=== PATIENT | male | born 1950 | race Caucasian/White ===

== ENCOUNTER 2019-03-12 04:18 | Inpatient (IN) ==
[2019-03-12] MEDS ORDERED: LEVOPHED 8 MG in D5 1/2 NS 250 ML IV SCH (04:30)
--- NOTE | 2019-03-12 04:44 | PROVIDER DOCUMENTATION ---
HPI-Cardiopulmonary Arrest - General Chief Complaint: Full Arrest Stated Complaint: Post Arrest Time Seen by Provider: 03/12/19 04:35 Allergies/Adverse Reactions: Allergies Allergy/AdvReac Type Severity Reaction Status Date / Time codeine Allergy Severe HIVES Verified 03/12/19 04:57 Home Medications: Home Medication List Medication Instructions Recorded Confirmed Last Taken Type ATORVAstatin [Lipitor] 40 mg PO QHS 08/14/13 03/12/19 12/19/17 21:00 History Aspirin 81 mg PO DAILY 08/14/13 03/12/19 12/19/17 09:00 History Clopidogrel [Plavix] 75 mg PO DAILY 08/14/13 03/12/19 12/13/17 History Insulin Glargine [Lantus] 75 unit SUBQ QHS 08/14/13 03/12/19 12/19/17 21:00 History 55 Isosorbide Mononitrate E.r. [Imdur] 60 mg PO DAILY 08/14/13 03/12/19 12/19/17 09:00 History Metoprolol [Lopressor] 100 mg PO BID 08/14/13 03/12/19 12/19/17 21:00 History Montelukast Sodium [Singulair] 10 mg PO DAILY 08/08/16 03/12/19 12/19/17 09:00 History Furosemide [Lasix] 40 mg PO DAILY 06/06/17 03/12/19 12/13/17 History LISINOpril [Prinivil] 10 mg PO DAILY 06/06/17 03/12/19 12/19/17 09:00 History Metoclopramide [Reglan] 10 mg PO AC + HS 06/06/17 03/12/19 12/19/17 21:00 History Sitagliptin Phosphate [Januvia] 100 mg PO DAILY 06/06/17 03/12/19 12/19/17 09:00 History Ascorbic Acid [Vitamin C] 1,000 mg PO BID 06/09/17 03/12/19 12/19/17 21:00 History Albuterol Sulfate [Albuterol 8.5 gm IH PRN PRN 12/13/17 03/12/19 12/19/17 22:00 History Sulfate Hfa] Potassium Chloride 40 meq PO DAILY 12/13/17 03/12/19 12/19/17 09:00 History - History of Present Illness-C/P Arrest Initial Comments: Presents to the EC with EMS s/p ROSC. Per EMS, stated that she got up to check up in him in his recliner and he was hooked up to his CPAP machine. She states he was having trouble breathing and then fell over on the floor. She could not get any response or pulses from him and called 911. Per EMS, upon arrival he was in asystole. They gave him 2 epi and a dose of lidocaine. He went into Vfib and they shocked at 200J. He then regained ROSC but remained bradycardic. He was given 2 doses of atropine and started on dopamine. Upon speaking to the , she states that he sleeps in his recliner at night because he cannot lay flat. She states that she heard an abnormality with his CPAP machine and got up to check on him and that is when he collapsed on the floor. She states she called 911 at that time. Review of Systems - Adult - REVIEW OF SYSTEMS - ADULT ROS:: unobtainable per condition Constitutional: reports: see HPI Eyes: reports: see HPI Ears, Nose, Mouth & Throat: reports: see HPI Cardiovascular: reports: see HPI Respiratory: reports: see HPI Gastrointestinal: reports: see HPI Genitourinary: reports: see HPI Musculoskeletal: reports: see HPI Integumentary: reports: see HPI Neurological: reports: see HPI Psychiatric: reports: see HPI Endocrine: reports: see HPI Hematologic/Lymphatic: reports: see HPI Allergic/Immunologic: reports: see HPI All Other Systems: Reviewed and Negative Past History - Adult - PAST MEDICAL HISTORY-ADULT Review of Records: reports: Old Records Reviewed Cardiovascular: reports: CAD, CHF, HTN Physical Exam-General - PHYSICAL EXAM-ADULT Initial Vital Signs Reviewed: Yes - CONSTITUTIONAL General Appearance: other (intubated) - EYES Eyes: other (minimally reactive) - HEAD, EARS, NOSE, MOUTH & THROAT HENMT: normocephalic/atraumatic, other (intubated) - NECK Neck: normal inspection - RESPIRATORY Respiratory: lungs clear, other (intubated, BVM in use) - CARDIOVASCULAR Cardiovascular: no edema, bradycardia - GASTROINTESTINAL (ABDOMEN) Abdominal Exam: soft. negative: distended - MUSCULOSKELETAL Extremity: normal inspection, no pedal edema - SKIN Integumentary: warm/dry, pallor - NEUROLOGIC Neurologic: other (intubated) - PSYCHIATRIC Psych/Mental Status: other (intubated) Progress - PLAN OF CARE/RESULTS Progress/Plan/Lab Results: Vital Signs - 8 hr 03/12/19 04:28 03/12/19 04:58 03/12/19 05:30 Temperature 95.2 F L Pulse Rate 70 120 H Respiratory Rate 20 20 Blood Pressure 68/32 O2 Sat by Pulse Oximetry 90 L 98 Laboratory Results - last 24 hr 03/12/19 03/12/19 03/12/19 04:30 04:30 04:30 WBC 8.38 RBC 3.25 L Hgb 10.1 L Hct 31.6 L MCV 97.2 MCH 31.1 H MCHC 32.0 L RDW Std Deviation 12.9 Plt Count 162 MPV 10.7 H Immature Gran % (Auto) 2.0 H Neut % (Auto) 73.8 Lymph % (Auto) 17.4 L [place] % (Auto) 4.9 Eos % (Auto) 1.7 Baso % (Auto) 0.2 Immature Gran # (Auto) 0.17 H Neut # (Auto) 6.18 Lymph # (Auto) 1.46 [place] # (Auto) 0.41 Eos # (Auto) 0.14 Baso # (Auto) 0.02 PT INR PTT (Actin FS) Specimen Type Sample Site pH pCO2 pO2 HCO3 Base Excess Oxyhemoglobin ABG O2 Sat (Calculated) ABG O2 Saturation ABG Carboxyhemoglobin ABG Methemoglobin Amado Test A-a O2 Difference Total Hemoglobin Lactate Liter Flow Blood Gas Modality FiO2 % Sodium 139 Potassium 6.4 H* Chloride 111 H Carbon Dioxide 14 L Anion Gap 14 BUN 30 H Creatinine 1.8 H Estimated GFR/1.73 m2 38 BUN/Creatinine Ratio 17 Glucose 261 H Calculated Osmolality 293 Calcium 7.9 L Phosphorus Magnesium Total Bilirubin 0.37 AST 40 H ALT 31 Alkaline Phosphatase 105 Creatine Kinase 180 Troponin T Cst-H-Djcmpwxcxut Pept 2154 H Total Protein 5.5 L Albumin 3.5 Globulin 2.0 Albumin/Globulin Ratio 1.8 Urine Source Urine Color Urine Turbidity Urine pH Ur Specific [place] Urine Protein Ur Glucose (Stick) Ur Ketones (Stick) Urine Blood Urine Nitrite Urine Bilirubin Urobilinogen Dipstick Urine Leukocytes Urine WBC (Auto) Urine RBC (Auto) U Epithel Cells (Auto) Urine Bacteria (Auto) 03/12/19 03/12/19 03/12/19 04:30 04:30 04:30 WBC RBC Hgb Hct MCV MCH MCHC RDW Std Deviation Plt Count MPV Immature Gran % (Auto) Neut % (Auto) Lymph % (Auto) [place] % (Auto) Eos % (Auto) Baso % (Auto) Immature Gran # (Auto) Neut # (Auto) Lymph # (Auto) [place] # (Auto) Eos # (Auto) Baso # (Auto) PT 15.1 INR 1.10 PTT (Actin FS) 39.5 Specimen Type Sample Site pH pCO2 pO2 HCO3 Base Excess Oxyhemoglobin ABG O2 Sat (Calculated) ABG O2 Saturation ABG Carboxyhemoglobin ABG Methemoglobin Amado Test A-a O2 Difference Total Hemoglobin Lactate Liter Flow Blood Gas Modality FiO2 % Sodium Potassium Chloride Carbon Dioxide Anion Gap BUN Creatinine Estimated GFR/1.73 m2 BUN/Creatinine Ratio Glucose Calculated Osmolality Calcium Phosphorus 7.2 H Magnesium 1.9 Total Bilirubin AST ALT Alkaline Phosphatase Creatine Kinase Troponin T 0.049 Caf-G-Aoztprlaqkg Pept Total Protein Albumin Globulin Albumin/Globulin Ratio Urine Source Urine Color Urine Turbidity Urine pH Ur Specific [place] Urine Protein Ur Glucose (Stick) Ur Ketones (Stick) Urine Blood Urine Nitrite Urine Bilirubin Urobilinogen Dipstick Urine Leukocytes Urine WBC (Auto) Urine RBC (Auto) U Epithel Cells (Auto) Urine Bacteria (Auto) 03/12/19 03/12/19 04:30 05:00 WBC RBC Hgb Hct MCV MCH MCHC RDW Std Deviation Plt Count MPV Immature Gran % (Auto) Neut % (Auto) Lymph % (Auto) [place] % (Auto) Eos % (Auto) Baso % (Auto) Immature Gran # (Auto) Neut # (Auto) Lymph # (Auto) [place] # (Auto) Eos # (Auto) Baso # (Auto) PT INR PTT (Actin FS) Specimen Type ARTERIAL Sample Site L RADIAL pH 7.00 L* pCO2 57 H* pO2 104 H HCO3 11.5 L Base Excess -17.1 L Oxyhemoglobin 93.6 L ABG O2 Sat (Calculated) 15.5 ABG O2 Saturation 97.1 ABG Carboxyhemoglobin 2.50 ABG Methemoglobin 1.1 Amado Test YES A-a O2 Difference 538.0 Total Hemoglobin 11.7 Lactate 2.50 H Liter Flow 15.0 Blood Gas Modality AMBU BAG FiO2 % 100.0 Sodium Potassium Chloride Carbon Dioxide Anion Gap BUN Creatinine Estimated GFR/1.73 m2 BUN/Creatinine Ratio Glucose Calculated Osmolality Calcium Phosphorus Magnesium Total Bilirubin AST ALT Alkaline Phosphatase Creatine Kinase Troponin T Ljw-U-Zsuosjcbzkh Pept Total Protein Albumin Globulin Albumin/Globulin Ratio Urine Source CATH Urine Color YELLOW Urine Turbidity HAZY Urine pH 5.5 Ur Specific [place] 1.018 Urine Protein 300 A Ur Glucose (Stick) NEGATIVE Ur Ketones (Stick) NEGATIVE Urine Blood NEGATIVE Urine Nitrite NEGATIVE Urine Bilirubin NEGATIVE Urobilinogen Dipstick NORMAL Urine Leukocytes NEGATIVE Urine WBC (Auto) <10 Urine RBC (Auto) <10 U Epithel Cells (Auto) <10 Urine Bacteria (Auto) NEGATIVE Orders Category Date Time Status Cardiac Monitoring DIRECTED Care 03/12/19 04:55 Active Nursing- Obtain EKG ONCE Care 03/12/19 05:20 Active Oxygen Therapy- ED Nursing DIRECTED Care 03/12/19 04:55 Active Saline Loc NOW Care 03/12/19 04:55 Active CHEST-PORTABLE [RAD] Stat Exams 03/12/19 04:39 Taken ABG [RESP] Routine Lab 03/12/19 05:00 Completed CBC WITH ELECTRONIC DIFF [HEME] Stat Lab 03/12/19 04:30 Completed CK PROFILE [SP CHEM] Stat Lab 03/12/19 04:30 Completed COMPREHENSIVE METABOLIC PANEL [CHEM] Stat Lab 03/12/19 04:30 Completed MAGNESIUM [CHEM] Stat Lab 03/12/19 04:30 Completed PHOSPHORUS [CHEM] Stat Lab 03/12/19 04:30 Completed PRO B-NATRIURETIC PEPTIDE Stat Lab 03/12/19 04:30 Completed PROTIME WITH INR [COAG] Stat Lab 03/12/19 04:30 Completed PTT [COAG] Stat Lab 03/12/19 04:30 Completed TROPONIN T Stat Lab 03/12/19 04:30 Completed URINALYSIS W/POSS RFLX CULT [URINALYSIS] Stat Lab 03/12/19 04:30 Completed URINE CULTURE [RM] Routine Lab 03/12/19 05:46 Received 0.9% Sodium Chloride Inj [Ns] 1,000 ml Med 03/12/19 04:52 Discontinued .ROUTE As directed Aspirin Med 03/12/19 04:54 Discontinued 300 mg NV NOW ONE Dextrose 5%-0.45% NaCl Inj [D5 1/2 Ns] 250 ml Med 03/12/19 04:30 Active Norepinephrine [Levophed] 8 mg IV As Directed mls/hr Dopamine 800 mg/D5w Med 03/12/19 05:30 Active 800 mg in 500 ml IV As Directed mls/hr CP/SOB/Palp >45 yrs of Age Stat Oth 03/12/19 04:54 Ordered EKG [EKG] Stat Ther 03/12/19 05:20 Draft [facility] to [facility] who declined transfer to their service stating it was more respiratory in nature. They offered to be consulted if hospitalist would accept and transfer center advised us that hospitalist were at capacity and no longer accepting patients. Paged Dr Potts, detention attendant for cardiology at [facility]. He states that we could attempt to transfer to [facility] or we could keep the patient here and see if he has any mental status changes given the cardiac arrest. I spoke to the about the possibility of transfer and she is concerned about his stability and would like him just kept at this hospital. She understands that there is no interventional cardiology here should he need it. Code status was discussed and she thinks he would not want anything done but is not willing to make that final decision yet and would some time to think about it. He remains full code at this time. Hypothermic protocol initiated. Paged Hospitalist at 0545: Per workers compensation legal secretary, Dr Sanchez left at 0530 and we will need to await until 0700 hospitalist comes on. Paged hospitalist @0702: Spoke to Dr Tomas who accepted patient for admission. Further orders to be placed at this time. Result Diagrams: 03/12/19 04:30 03/12/19 04:30 - EKG 1 Time of EKG reading by physician:: 04:25 EKG Read and Signed by:: Sheila Lopez EKG Interpretation (*Must complete 3 of following elements*): Abnormal Rate: 68 Rhythm: NSR NV Interval: prolonged Comments: RBBB, bifasicular block, possible inferolateral ischemia 2 Time of EKG reading by physician:: 04:48 EKG Read and Signed by:: Sheila Lopez EKG Interpretation (*Must complete 3 of following elements*): Abnormal Rate: 117 Rhythm: Tachycardia QRS: PVC's Comments: RBBB, bifasicular block, possible inferolateral ischemia - XRAY 1 XRAY Study: Chest (good tube placement, NGT could benefit from slight advancement) Impression: See EMR Report - CONSULTS/PCP/HOSPITALIST Notification #1 *Consult/PCP/Hospitalist*: [facility] Transfer center Time Discussed: 05:00 (Cardiology wants EKG faxed) #2 Consult: [facility] Time Discussed: 05:20 (Cardiology wants another EKG) #3 Consult: Transfer Center Time Discussed: 05:30 (Declines patient, does not feel this is cardiac and is likely more respiratory. They will defer to their hospitalist service and will be consulted if needed. Hospitalist service capped, not accepting transfer at this time. ) Departure - Departure Date of Disposition Decision: 03/12/19 Time of Disposition Decision: 05:40 DIAGNOSIS: Cardiac arrest, Chronic kidney disease, Diabetes mellitus, Coronary artery disease, Hyperkalemia, Respiratory acidosis Disposition: ADMITTED INPATIENT 09 Certified Medical Emergency: Emergent Condition: Critical Referrals and Follow-Ups: Debra Rendon CRNP [Primary Care Provider] - - Critical Care Note This patient required my direct & personal management of CC.: Yes Total Time (mins): 90 Critical Care Statement: This patient required my direct personal management to treat or rule out processes, the absence of which, could potentiallly result in sudden, clinically significant life or limb threatening deterioration. Attestation - Physician/ [place] Attestation Patient care was provided by Advanced Practice Provider:: No The physician spent face to face time with patient:: Yes Advanced Practice Provider documentation review:: Supervising physician onsite and consulted in the evaluation and care of this patient. The physician did have a face to face encounter with the patient.
[2019-03-12] MEDS ORDERED: NS 1,000 ML ONE (04:52)
[2019-03-12] MEDS ORDERED: ASPIRIN PR ONE (04:54)
[2019-03-12 05:09] LABS: ALLEN TEST YES; BE -17.1 mmoll (-3.0-3.0); BLOOD TYPE ARTERIAL; HCO3-(ACT) 11.5 mmoll (20.0-26.0); METHB 1.1 % (0.0-1.5); O2(CT) 15.5 mL/dL (15.0-23.0); O2HB 93.6 % (95.0-99.0); PO2(98.6) 104 mmHg (60-100); SAMPLE BLOOD; SAO2 97.1 % (95.0-100.0); THB 11.7 g/dL (11.5-17.4)
[2019-03-12 05:11] LABS: BASO# 0.02 X1000 (0.0-0.2); BASO% 0.2 % (0.0-0.8); EOS# 0.14 X1000 (0.0-0.7); EOS% 1.7 % (0.0-10.0); HEMATOCRIT 31.6 % (42.0-52.0); HEMOGLOBIN 10.1 g/dL (14.0-18.0); IMM GRAN# 0.17 X1000 (0.0-0.04); LYMPH# 1.46 X1000 (1.2-3.4); LYMPH% 17.4 % (20.5-51.1); MCH 31.1 PG (27-31); MCV 97.2 FL (81-99); MONO# 0.41 X1000 (0.11-0.59); MONO% 4.9 % (1.7-9.3); MPV 10.7 FL (7.4-10.4); NEUT# 6.18 X1000 (1.4-6.5); NEUT% 73.8 % (42.2-75.2); PLT 162 X1000 (130-400); RBC 3.25 XMIL (4.7-6.1); RDW 12.9 % (11.5-14.5); WBC 8.38 X1000 (4.8-10.8)
[2019-03-12 05:12] LABS: MODALITY AMBU BAG; PCO2(98.6) 57 mmHg (35-45)
[2019-03-12 05:20] LABS: INR 1.1; PROTIME 15.1 Seconds (11.0-16.0)
[2019-03-12 05:21] LABS: PTT 39.5 Seconds (22.3-41.8)
[2019-03-12] MEDS ORDERED: DOPAMINE 800 MG/D5W 800 MG/500 ML IV.SOLN IV SCH (05:30)
--- NOTE | 2019-03-12 05:38 | EKG Report ---
Test Performed on : 03/12/2019 04:48:26 AM Test Reason : Post Arrest Blood Pressure : / mmHG Vent. Rate : 117 BPM Atrial Rate : 117 BPM P-R Int : 158 ms QRS Dur : 176 ms QT Int : 412 ms P-R-T Axes : 062 121 -31 degrees QTc Int : 574 ms Sinus tachycardia. with occasional premature ventricular complexes. Possible Left atrial enlargement Right bundle branch block Left posterior fascicular block Bifascicular block Marked T wave abnormality, consider inferior ischemia Abnormal ECG When compared with ECG of 13-DEC-2017 13:39, premature ventricular complexes. are now present Vent. rate has increased BY 61 BPM (RBBB and left posterior fascicular block) is now present Criteria for Septal infarct are no longer present Unconfirmed Result
[2019-03-12 05:53] LABS: URINE SOURCE CATH
[2019-03-12 06:00] LABS: BILIRUBIN URINE NEGATIVE (NEGATIVE); BLOOD URINE NEGATIVE (NEGATIVE); COLOR YELLOW; GLUCOSE URINE NEGATIVE (NEGATIVE); KETONE URINE NEGATIVE (NEGATIVE); LEUKOCYTES URINE NEGATIVE (NEGATIVE); NITRITE URINE NEGATIVE (NEGATIVE); PH URINE 5.5; PROTEIN URINE 300 mg/dL (NEGATIVE); SP GRAVITY URINE 1.018; TURBIDITY URINE HAZY (CLEAR); UROBILINOGEN URINE NORMAL (NORMAL)
[2019-03-12 06:02] LABS: UR EPITHELIAL CELLS <10 /HPF (<10); URINE BACTERIA NEGATIVE /HPF; URINE RBC <10 /HPF (<10); URINE WBC <10 /HPF (<10)
[2019-03-12 06:07] LABS: MAGNESIUM 1.9 mg/dL (1.5-2.7); PHOSPHORUS 7.2 mg/dL (2.7-4.5)
[2019-03-12 06:16] LABS: ALB/GLOB RATIO 1.8; ALBUMIN 3.5 g/dL (3.5-5.0); CALCIUM 7.9 mg/dL (8.8-10.2); CREATININE 1.8 mg/dL (0.7-1.2); TOTAL BILIRUBIN 0.37 mg/dL (0.20-1.00); TOTAL PROTEIN 5.5 g/dL (6.3-8.3)
[2019-03-12 06:19] LABS: POTASSIUM 6.4 mmol/L (3.5-5.1)
[2019-03-12] MEDS ORDERED: KAYEXALATE NG ONE (07:18)
[2019-03-12] MEDS ORDERED: NS 1,000 ML IV ONE (07:20)
[2019-03-12] MEDS ORDERED: SODIUM BICARBONATE 8.4% 150 MEQ in D5W 1,000 ML IV ONE (07:30)
[2019-03-12] MEDS ORDERED: ZYVOX 600 MG/D5W 600 MG/300 ML IVPB IV SCH (07:30)
[2019-03-12] MEDS ORDERED: MERREM 1 GM in NS 50 ML IV SCH (08:00)
--- NOTE | 2019-03-12 08:01 | EKG Report ---
Test Performed on : 03/12/2019 07:33:16 AM Test Reason : repeat Blood Pressure : / mmHG Vent. Rate : 091 BPM Atrial Rate : 091 BPM P-R Int : 196 ms QRS Dur : 174 ms QT Int : 430 ms P-R-T Axes : 052 115 -45 degrees QTc Int : 528 ms Normal sinus rhythm. Nonspecific intraventricular block Right ventricular hypertrophy Cannot rule out Septal infarct , age undetermined Marked T wave abnormality, consider inferior ischemia Abnormal ECG When compared with ECG of 12-MAR-2019 04:48, (Unconfirmed) premature ventricular complexes. are no longer present Nonspecific intraventricular block has replaced Right bundle branch block Unconfirmed Result
--- NOTE | 2019-03-12 08:03 | Diag Imaging Result Doc PS360 ---
EXAM: CHEST-PORTABLE 03/12/2019 HISTORY: TUBE PLACEMENT TECHNIQUE: AP portable at 0455 COMMENT: There is an endotracheal tube with its tip slightly below the thoracic inlet and an NG tube the tip of which appears to be at the esophagogastric junction. There is air bronchograms in the central portions of both lungs particularly the left lower lobe. This was not the case on 02/13/2019. The inspiration is less optimal than on the previous study. There is apparent atelectasis or pneumonia in the left upper lobe. IMPRESSION: Atelectasis and/or bronchopneumonia. NG tube at the esophagogastric junction. Electronically signed by Nader Almanza 03/12/2019 8:01 AM
--- NOTE | 2019-03-12 08:06 | EKG Report ---
Test Performed on : 03/12/2019 04:25:21 AM Test Reason : POST Blood Pressure : / mmHG Vent. Rate : 068 BPM Atrial Rate : 068 BPM P-R Int : 212 ms QRS Dur : 162 ms QT Int : 510 ms P-R-T Axes : 056 118 -06 degrees QTc Int : 542 ms Sinus rhythm. with 1st degree AV block. Possible Left atrial enlargement Right bundle branch block Left posterior fascicular block Bifascicular block T wave abnormality, consider inferolateral ischemia Abnormal ECG No previous ECGs available Unconfirmed Result
--- NOTE | 2019-03-12 08:31 | Diag Imaging Result Doc PS360 ---
EXAM: CT THORAX W/O CONTRAST 03/12/2019 HISTORY: cardiac arrest TECHNIQUE: This exam was performed using automated exposure control, adjustment of mA or kV according to patient size, and/or use of iterative reconstruction technique. COMMENT: There is an endotracheal tube with its tip well above the dulce. There is an NG tube with its tip in the fundus of the stomach. There are bilateral pleural effusions more so on the right than the left. There is interstitial opacity consistent with pulmonary edema. There is consolidation in the posterior upper lobes and lower lobes bilaterally. There is dense calcification in the left coronary artery and right coronary artery. There is calcification in the mitral valve annulus. The aorta is not distended. There is some right paratracheal adenopathy with nodes measuring almost 2 cm in greatest dimension. There is a tracheobronchial node on the right measuring up to 2.5 cm. There is apparent ascites in the subhepatic space. There is no apparent hydronephrosis. There is some small bowel fluid demonstrated in the upper abdomen as well as stool in the colon. No acute bony abnormalities are demonstrated. There is an apparent stent in the right renal artery. IMPRESSION: 1. Bilateral upper lobe pneumonia. 2. Pulmonary edema. 3. Bilateral pleural effusions. 4. Coronary atherosclerosis. 5. Ascites. 6. Mediastinal adenopathy. Electronically signed by Nader Almanza 03/12/2019 8:29 AM
[2019-03-12 08:42] LABS: CK INDEX 7.8 (0.0-2.5); CK-MB 93.42 ng/mL (0.0-5.0)
[2019-03-12] MEDS ORDERED: TYLENOL PR PRN (08:51)
[2019-03-12] MEDS ORDERED: NS 500 ML IV PRN (08:51)
[2019-03-12] MEDS ORDERED: LACRI-LUBE OPH OINT BOTH EYES SCH (09:00)
[2019-03-12] MEDS ORDERED: FENTANYL 1,000 MICROGM in NS 80 ML IV SCH (09:00)
[2019-03-12] MEDS ORDERED: SODIUM CHLORIDE 0.9% INJ SCH (09:00)
[2019-03-12] MEDS ORDERED: POTASSIUM CHLORIDE 40 MEQ in NS 250 ML IV PRN (09:00)
[2019-03-12] MEDS ORDERED: NITROGLYCERIN 50 MG/D5W 50 MG/250 ML IV.SOLN IV SCH (09:00)
[2019-03-12] MEDS ORDERED: FENTANYL IV ONE (09:00)
[2019-03-12] MEDS ORDERED: POTASSIUM CHLORIDE 60 MEQ in NS 500 ML IV PRN (09:00)
[2019-03-12] MEDS ORDERED: MAGNESIUM SULFATE 2 GM in STERILE WATER INJ. 50 ML IV PRN (09:00)
[2019-03-12] MEDS ORDERED: SODIUM PHOSPHATE 20 MMOL in NS 250 ML IV PRN (09:00)
[2019-03-12] MEDS ORDERED: LOVENOX SUBQ SCH (09:00)
[2019-03-12] MEDS ORDERED: PEPCID IV SCH (09:00)
[2019-03-12] MEDS ORDERED: SODIUM PHOSPHATE 10 MMOL in NS 250 ML IV PRN (09:00)
[2019-03-12] MEDS ORDERED: APRESOLINE IV PRN (09:04)
[2019-03-12] MEDS: ATIVAN IV SCH ×2 (09:19→13:30)
[2019-03-12] MEDS: NIMBEX 80 MG in NS 160 ML IV SCH ×2 (09:58→13:36)
[2019-03-12] MEDS ORDERED: NS 250 ML ONE ×2 (09:58→13:59)
[2019-03-12 10:06] LABS: ALLEN TEST YES; BE -14.8 mmoll (-3.0-3.0); BLOOD TYPE ARTERIAL; HCO3-(ACT) 13.4 mmoll (20.0-26.0); METHB 1.1 % (0.0-1.5); O2(CT) 16.5 mL/dL (15.0-23.0); O2HB 96.7 % (95.0-99.0); PCO2(98.6) 28 mmHg (35-45); PO2(98.6) 217 mmHg (60-100); SAMPLE BLOOD; SAO2 98.7 % (95.0-100.0); SRATE 20 BPM; THB 11.8 g/dL (11.5-17.4); TVOL 600 mL; pH(98.6) 7.22 (7.35-7.45)
[2019-03-12 10:07] LABS: MODALITY VENTILATOR
--- NOTE | 2019-03-12 10:23 | HISTORY AND PHYSICAL ---
HISTORY: Apparently, he arrived. His stated that he sleeps in the recliner with a CPAP. About 2:30 in the morning, she noticed he was not sounding the same, and it looked like he was having agonal breathing. At times, looked like he stopped breathing. Called the paramedics, she guesses around 16 minutes before they got there. They started CPR, gave him a couple amps of epinephrine, I think 3 of epinephrine and 2 of atropine, and chest compressions. Apparently, heart rate resumed and he was intubated. I believe he was intubated en route, but may have been Ambu bag. His heart has remained in sinus rhythm. He was on pressors. There was an attempt to transfer, to my understanding, to [facility], and they were unable to take him. He moved up to the ICU. Blood pressures have gone up to around 235/120, so we have stopped his pressors. His heart is in rhythm. He has not responded. We are going to put him on the hypothermia protocol. PAST MEDICAL HISTORY: 1. Obstructive sleep apnea. Wears CPAP. 2. History of congestive heart failure by report. 3. History of coronary artery disease, status post myocardial infarction. 4. History of CVA about a year ago. 5. Family states that since the CVA, he seems to have early dementia or cognitive decline. He had an echo done in the past. PAST SURGICAL HISTORY: 1. He has had an appendectomy. 2. Endarterectomy. 3. Cholecystectomy. FAMILY HISTORY: History of father with heavy snoring, restless legs in his mother, sleep apnea in his father. SOCIAL HISTORY: Former smoker. No alcohol use. He is . Caffeine use: None. REVIEW OF SYSTEMS: We are unable to get review of systems from him. His family reported that he sleeps in a recliner. He seemed to be having a little more trouble with sleep in the last couple weeks. Denied any fever or chills. Denied any new focal neurologic deficits. PHYSICAL EXAMINATION: In the ICU. VITAL SIGNS: Temp was 95.4 degrees, pulse 92, respirations 24, blood pressure 210/114. HEENT: Pupils are equal and round. LUNGS: Clear in all lung [place]. CARDIOVASCULAR: Regular rhythm and rate without murmur or S3. ABDOMEN: Soft. SKIN: Warm and dry. EXTREMITIES: No pedal edema. IMAGING AND LABORATORY DATA: White count 8380, hematocrit is 31, platelet count 162,000. Sodium 139, potassium 6.4, chloride 111, bicarb 14, BUN 30, creatinine 1.8. CPK was 1200. Troponin 0.0823. Albumin 3.5. ProTime 15, PTT 39. Urinalysis unremarkable. Blood gas showed pH was 7.00, pCO2 of 57, PO2 is 104. That was on 100% Ambu bag. He is now intubated. CT of his chest: Bilateral upper lobe pneumonias, pulmonary edema, bilateral pleural effusions, coronary atherosclerosis, ascites, mediastinal adenopathy. Chest x-ray: Atelectasis and/or bronchopneumonia. NG tube at the esophagogastric junction. REVIEW OF ORDERS: He is going to be on the hypothermia protocol. Right now, I think we have him off the pressors. He was getting bicarb drip. We did supplement some magnesium. Getting linezolid 600 mg IV every 12 hours. He is getting a bicarb drip at 75 mL an hour at 150 mEq/L. cc: Amado Tracy MD
--- NOTE | 2019-03-12 11:02 | Diag Imaging Result Doc PS360 ---
EXAM: CHEST-PORTABLE 03/12/2019 HISTORY: picc line placement TECHNIQUE: AP portable at 1044 COMMENT: There is an endotracheal tube with its tip slightly below the thoracic inlet. There is an NG tube which passes below the diaphragm into the fundus the stomach. There is a right-sided PICC line with its tip in the superior vena cava. There is worsening pulmonary edema. Compared to the previous study at 0455 the left hemidiaphragm is now mostly obscured. IMPRESSION: Worsening pulmonary edema. Electronically signed by Nader Almanza 03/12/2019 10:59 AM
[2019-03-12 11:52] LABS: AGAP 15; BUN 37 mg/dL (8-22); CALCIUM 7.8 mg/dL (8.8-10.2); CHLORIDE 108 mmol/L (98-107); COSMO 293; CREATININE 2.2 mg/dL (0.7-1.2); GLUCOSE 328 mg/dL (70-104); SODIUM 136 mmol/L (136-145); TCO2 13 mmol/L (25-35)
[2019-03-12 11:54] LABS: POTASSIUM 6.2 mmol/L (3.5-5.1)
[2019-03-12] MEDS ORDERED: VELTASSA PO ONE (12:00)
[2019-03-12] MEDS ORDERED: HUMULIN R IV ONE ×2 (12:01→12:30)
[2019-03-12] MEDS ORDERED: ALBUTEROL 0.5% INH CONC FOR HYPERKALEMIA INH ONE (12:02)
[2019-03-12 12:25] LABS: CK INDEX 8.3 (0.0-2.5); CK-MB 181.8 ng/mL (0.0-5.0)
[2019-03-12] MEDS ORDERED: HUMULIN R 100 UNIT in NS 100 ML IV SCH (12:30)
[2019-03-12] MEDS ORDERED: D50W SYRINGE IV SCH (12:30)
--- NOTE | 2019-03-12 15:40 | CARDIOLOGY CONSULTATION ---
DATE: 03/12/2019 CONSULTATION REQUESTED BY: Hospitalist service. REASON: Cardiac arrest. HISTORY: Mr. Bean is an unfortunate 68-year-old male that was in his usual state of health until last night. 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 He sleeps on a recliner using a CPAP mask. At about 2 or 2:30 in the morning, realized that there was a funny noise coming out of the CPAP machine. She got out of bed and checked on her who at that time was unresponsive. She activated the emergency medical service and the patient was brought to the hospital for immediate assistance. I believe there was a finding of asystole by the EMS. They gave him epinephrine, lidocaine, they noted ventricular fibrillation. He regained spontaneous circulation but remained bradycardic. They gave him atropine and dopamine. All of that was done on the field and on his way to the hospital. In the hospital, they did an EKG upon arrival that was done at 4:25 a.m. that showed sinus rhythm, first-degree AV block and incomplete ventricular conduction delay, rightward axis, diffuse ST depression in 1, aVL, significant ST depression in V3 through V6 and a little bit of ST elevation in AVR and V1. According to the ER physician, they contacted [facility]. However, the patient was not deemed an appropriate candidate for acute intervention and he was kept in this hospital. He has been intubated and placed on the hypothermic protocol. The pressors have been withheld since he developed hypertension thereafter. At this time, the patient is not having any response. He is on IV fluids but no pressors. Nurses have initiated nitroglycerin drip to control the blood pressure. is at the bedside. She gave me some history. According to the , the patient has a history of coronary heart disease for many years. He has had multiple interventions. He is under the care of Dr. Miriam Galloway in [place]. He saw him recently about 2 months ago. He had a stress test about a month ago that reportedly was negative. According to the , the patient has been having diarrhea for several months and this has happened progressively and he has been getting weak from it. He has hypertension, diabetes mellitus, hyperlipidemia. SURGICAL HISTORY: He has had bilateral carotid endarterectomy first the left over a year and half ago, then the right recently. The last surgery was done by Dr. Alonso on November 2017. Then he has had cholecystectomy in May 2017. He has umbilical hernia. SOCIAL HISTORY: He has been to his 2nd for 33 years. He used to be a smoker. 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 No other major positives in past history. HOME MEDICATIONS: At this time included the ones listed by the nurses. Albuterol, ascorbic acid, aspirin, atorvastatin 40 mg daily, clopidogrel 75 daily, Lasix 40 mg daily, insulin Lantus 75 units daily, isosorbide mononitrate 60 daily, lisinopril 10 daily, Reglan 10 twice a day, metoprolol 100 twice a day, Singulair 10 mg daily, Januvia 100 daily, potassium chloride 40 mEq daily. ALLERGIES: Codeine. REVIEW OF SYSTEMS: Is not obtainable. However, the says that he has declined lately. He does have a sleep apnea syndrome, sleeps with a mask. He has a bulging disk in the back. He also has some peripheral vascular disease. PHYSICAL EXAMINATION: Right now blood pressure is 215/113, pulse 104, respirations 23, his temperature is 95.4 degrees. He is unresponsive.HEENT: Scar of carotid endarterectomy. Diminished pulses. Bilateral rhonchi in the chest. Heart: Sounds distant, regular. No gallop or murmur. Abdomen: Slightly distended. Extremities: Show decreased pulses. Skin: Shows no rashes. Neurologic: He is unresponsive. LABORATORY DATA: Blood work, his most recent blood gas, pH 7.22, pCO2 28, PO2 217. Sodium 139, potassium 6.4, BUN 30, creatinine 1.8. His CPKs started at 180, went up to 200. CK-MB fraction has become positive at 93.42, which is 7.8% index. ProBNP 2154. Troponin is 0.049, went up to 0.823. Last EKG on the chart that was done at 7:33 a.m. shows sinus rhythm, IVCD, rightward axis. The ST depression has improved. IMPRESSION: 1. Patient suffered an ischemic cardiac arrest with an acute myocardial infarction. The location of the myocardial infarction is difficult to ascertain based on the surface EKG. He has a very abnormal looking EKG to begin with. He has had multiple coronary intervention in the past. 2. History of bilateral carotid endarterectomy. 3. Chronic obstructive pulmonary disease. 4. Diabetes mellitus. 5. Hypertension. 6. Hyperlipidemia. RECOMMENDATION: At this time the patient really needs to pursue management as postcardiac arrest with hypothermic protocol. We will monitor here in the hospital. His prognosis is really guarded because of the potential for brain ischemia. We will follow him. I discussed with the that the prognosis may be very poor. Thank you for asking us to participate in the evaluation. cc: Darin Agudelo MD
[2019-03-12 16:05] LABS: CALCIUM 7.5 mg/dL (8.8-10.2); CREATININE 2.3 mg/dL (0.7-1.2); MAGNESIUM 1.5 mg/dL (1.5-2.7); PHOSPHORUS 2.9 mg/dL (2.7-4.5); POTASSIUM 4.3 mmol/L (3.5-5.1)
--- NOTE | 2019-03-12 16:11 | DISCHARGE SUMMARY ---
ADMISSION DATE: 03/12/2019 DISCHARGE DATE: 03/12/2019 Mr. Bean was found early this morning by his . He was not breathing right and apneic and then had asystole. He was given chest compressions and epinephrine and atropine. Regained a pulse. Never regained any neurologic function. He was intubated and required pressors to keep his blood pressure up. Around 3:30 he started having a drop in pressure and went into ventricular tachycardia without a pulse. CPR was again resumed and received some epinephrine. I did get a pulse back, but it quickly faded again with no pulse and family, after discussion, wanted to make him a no code, so no code level 1. Lost his pulse again at about 4:55, so no cardiac activity at 4:55 p.m. and pronounced . Family aware. cc: Amado Tracy MD
[2019-03-12 16:18] LABS: INR 1.13; PROTIME 15.4 Seconds (11.0-16.0)
[2019-03-12 16:27] LABS: BASO# 0.01 X1000 (0.0-0.2); EOS# 0.02 X1000 (0.0-0.7); EOS% 0.1 % (0.0-10.0); HEMATOCRIT 35.2 % (42.0-52.0); HEMOGLOBIN 11.7 g/dL (14.0-18.0); IMM GRAN% 0.5 % (0.0-0.5); LYMPH# 0.75 X1000 (1.2-3.4); LYMPH% 3.6 % (20.5-51.1); MCH 31.4 PG (27-31); MCHC 33.2 g/dL (33-37); MCV 94.4 FL (81-99); MONO# 1.83 X1000 (0.11-0.59); MONO% 8.8 % (1.7-9.3); MPV 11.2 FL (7.4-10.4); NEUT# 18.12 X1000 (1.4-6.5); PLT 201 X1000 (130-400); RBC 3.73 XMIL (4.7-6.1); RDW 12.9 % (11.5-14.5); WBC 20.83 X1000 (4.8-10.8)
--- NOTE | 2019-03-12 16:41 | EKG Report ---
Test Performed on : 03/12/2019 2:31:00 PM Test Reason : CODE BLUE Blood Pressure : / mmHG Vent. Rate : 143 BPM Atrial Rate : 143 BPM P-R Int : 000 ms QRS Dur : 134 ms QT Int : 334 ms P-R-T Axes : 000 117 -35 degrees QTc Int : 515 ms Atrial fibrillation. with rapid ventricular response. with premature ventricular or aberrantly conduc edward complexes. Right bundle branch block Septal infarct (cited on or before 12-MAR-2019) ST & T wave abnormality, consider inferior ischemia ST & T wave abnormality, consider anterolateral ischemia Abnormal ECG When compared with ECG of March 12, 2019 at 7:33- QRS has widened ST and T wave changes in the anterolateral leads are more pronounced. ST changes in inferior leads are more pronounced. Confirmed by Ritchie Seals MD ([id number]) on 03/13/2019 6:35:17 PM
[2019-03-12 16:44] LABS: CK-MB 250.4 ng/mL (0.0-5.0)
[2019-03-12 16:54] VITALS: BP 67/39
[2019-03-12 16:55] LABS: BANDS 8 % (0-1); LYMPHS 3 % (21-51); MONO 3 % (1-9); SEGS 86 % (42-75)
[2019-03-12] MEDS ORDERED: EPINEPHRINE SYRINGE ONE (17:57)
--- NOTE | 2019-03-12 18:49 | NEPHROLOGY CONSULTATION ---
DATE: 03/12/2019 REASON FOR ADMISSION: Cardiopulmonary arrest. REASON FOR CONSULTATION: Acute on chronic kidney disease. Assist with management. CONSULTING PHYSICIAN: Dr. Tracy. HISTORY OF PRESENT ILLNESS: This is a 68-year-old gentleman with a past medical history of diabetes, hypertension, obstructive sleep apnea, congestive heart failure, coronary artery disease, history of a CVA with dementia or cognitive decline, acute on chronic kidney disease with a baseline creatinine of 1.6. We have seen the patient in the outpatient setting last time about 3 months ago. At that time, his renal function was at his baseline 1.6. Patient is noted to have significant proteinuria secondary to his diabetes. The patient was admitted to the hospital. On this admission secondary to cardiopulmonary arrest. The patient sleeps in a recliner secondary to his obstructive sleep apnea, he does wear a CPAP. The woke up in the middle of night secondary to the CPAP alarming. She found the patient in distress. Subsequently, he fell on the floor. He was not breathing. He had no pulse. EMS was contacted. I understand the patient was down between 15 and 16 minutes prior to EMS arrival. Patient had CPR, epinephrine, atropine. He was intubated they were able to have ROSC. The patient has been transferred to the intensive care unit where he is currently undergoing hypothermia protocol. The patient, on admission, had a creatinine of 1.8 on arrival. It has risen subsequently to 2.2. His potassium was 6.4 on arrival. He was treated with Kayexalate as well as patiromer. He has been given insulin D 50, albuterol, etc. He should have labs repeated this afternoon about 4 secondary to hypothermia protocol. We have been asked to see him to assist with management secondary to his acute on chronic kidney disease. PAST MEDICAL HISTORY: As above. PAST SURGICAL HISTORY: Appendectomy, endarterectomy and cholecystectomy. ALLERGIES: Codeine. MEDICATIONS: Aspirin, Lantus, Lipitor, Lopressor, Imdur, Plavix, singular, Lasix, Januvia, Prinivil, Reglan, vitamin C, potassium chloride and albuterol. FAMILY HISTORY: Sleep apnea. SOCIAL HISTORY: Former smoker. No ETOH or illicit drug use. He is . REVIEW OF SYSTEMS: Unable to obtain. Patient currently sedated. PHYSICAL EXAMINATION: Vital Signs: Temperature 95 degrees, pulse 89, respiratory rate 20, blood pressure 121/58. Intake and output have not been completed. General: This is an elderly gentleman currently sedated and mechanically ventilated. HEENT: Normocephalic, atraumatic. His oral mucosa is dry. He has oral intubation. Pupils are sluggish. Neck: Supple. There is no JVD. Cardiovascular: On the monitor, he is tachy in the 1 teens. Pulmonary: Decreased breath sounds. Mechanically ventilated. Abdomen: Hypoactive. : Blum catheter. Extremities: No clubbing, cyanosis, edema. He has cooling wraps to the abdomen and extremities. Integumentary: Skin is pale and cool. Neurologic: Again, he is sedated. LAB DATA: Sodium 136, potassium 4.2, CO2 13, BUN 37, creatinine 2.2, calcium 7.8, CK 2185 (1200), CK/MB 181, troponin 2.6. Urinalysis essentially negative aside from proteinuria. IMAGING: Chest x-ray with pulmonary edema. ASSESSMENT AND PLAN: 1. Acute on chronic kidney disease secondary to cardiogenic shock status post cardiopulmonary arrest. The patient has been resuscitated with normal saline as well as bicarbonate. It appears that he has had 2 perhaps 3 L in thus far. The patient is currently undergoing hypothermia protocol. If the patient survives, will likely need renal replacement therapy, whether to assist with fluid volumes and/or his acute kidney injury remains to be seen. We will continue to monitor closely. 2. Hyperkalemia. The patient has been treated with both Kayexalate as well as patiromer and insulin D 50. He has repeat labs in the next couple of hours. 3. Acidosis metabolic. Patient is currently has sodium bicarbonate infusing. Dictated by CARMEN Sprague for Perfecto Evans MD Face to face encounter, data reviewed, discussed with Remi Addison on 03/12/19. I agree with the above assessment and plan of care. cc: Perfecto Evans MD [facility]
--- NOTE | 2019-03-12 20:53 | PULMONOLOGY CONSULTATION ---
DATE: 03/12/2019 Pulmonary consultation performed in the ICU. REASON FOR CONSULTATION: Respiratory failure status post cardiopulmonary arrest. HISTORY OF PRESENT ILLNESS: Mr. Bean is a 68-year-old male with extensive vascular disease including multiple cardiac stents, a renal stent, a leg stent, 2 prior carotid endarterectomies and a stroke, with a component of dementia and a greater than 20 pack-year history for tobacco who was found unresponsive by his this morning. EMS was called and he was found to be in ventricular fibrillation. There was a return of spontaneous circulation and he was brought to the ICU. Exact down time is not known. He remains poorly responsive. He is currently on dopamine for blood pressure and heart rate support. PAST MEDICAL HISTORY: 1. Coronary artery disease with 2 myocardial infarctions and multiple stent placements. 2. Status post carotid endarterectomy. 3. Kidney disease with prior stent placement. 4. Peripheral vascular disease with prior stent placement in the leg. 5. Dementia. 6. Stroke in February 2019. 7. Diabetes mellitus for greater than 20 years. 8. Hypertension. 9. Dyslipidemia. SOCIAL HISTORY: The patient has a 40 pack year history for tobacco but none recently. FAMILY HISTORY: Positive for heart disease, multiple cancers in his mother and unspecified cancer in his father. REVIEW OF SYSTEMS: Cannot be obtained. PHYSICAL EXAMINATION: General: Reveals a chronically ill-appearing male who appears older than his age on mechanical ventilation. He is on vasopressor support. His blood pressure is fluctuating between high and low. Current blood pressure 136/82, heart rate 97, respiratory rate 19, oxygen saturation 98% . HEENT: Pupils are equal but not reactive. Oropharynx appears clear. Neck: Supple. Chest: Reveals coarse rhonchi bilaterally. Cardiac: S1, S2. No definite murmurs or rubs. Abdomen: Soft. Extremities: Cool to the touch. LABORATORIES: Chest x-ray reveals cardiomegaly with increased vascular congestion with air bronchograms noted in the left lower lobe. White blood count 8.38, hemoglobin 10.1, platelet count 162,000. Arterial blood gas, pH 7.00, pCO2 of 57, pO2 of 104. Chemistries. Sodium 136, potassium 6.2, chloride 108, bicarbonate 13, BUN 37, creatinine 2.2, glucose 320. Troponin is elevated at 4.0. IMPRESSION: 68-year-old status post cardiopulmonary arrest. The patient has intermittent but agonal respirations. He has no movement. He does not respond to pain. He has significant acidosis, he has acute hypoxemic respiratory failure, he has probable chronic renal insufficiency. He does have significant hyperchloremic metabolic acidosis likely related to chronic diarrhea which his reports he developed after undergoing a cholecystectomy about a year ago. The patient most likely has sustained significant anoxic injury. He has significant vascular disease and dementia making his prognosis extremely poor. His family is aware. RECOMMENDATION: 1. Continue full ventilatory support. 2. Vasopressors as needed to maintain blood pressure per protocol. 3. Will initiate paralytics and sedation if needed to aid in hypothermia. 4. Initiate hypothermia protocol. Will attempt to keep temperature around 34 degrees but the primary goal is to prevent hyperthermia. 5. Poor prognosis as outlined above. cc: Daniel Guzman MD
[2019-03-12] MEDS ORDERED: SODIUM BICARBONATE 8.4% 150 MEQ in D5W 1,000 ML IV SCH (22:00)
== END 2019-03-12 15:55 | disposition expired ==
LOC: SUPCPDRO → ED 04:18 → ICU 07:45 → SUATTDRO 07:45
PROVIDERS: ATTEND Emergency Medicine